=== PATIENT | male | born 1995 | race Caucasian/White ===

== ENCOUNTER → 2022-05-19 | Day surgery (SDC) | payer OTHER ==
[~2022-05-19] VITALS: Ht 172.7 cm; Wt 82.5 kg
[~2022-05-19] MED LIST: DIAZEPAM5 MG PO; ESCITALOPRAM OX10 MG PO
[2022-05-19 10:23] LABS: HCT 45.5 % (42.0-52.0); MCH 30.2 pg (25.0-31.0); MCHC 35.2 g/dL (32.0-36.0); MCV 85.8 fL (78.0-100.0); MPV 9.8 fL (6.0-9.5); RBC 5.3 M/uL (4.70-6.00)
[2022-05-19 11:15] LABS: ALBUMIN 4.5 g/dL (3.4-5.0); BILIRUBIN - TOTAL 0.5 mg/dL (0.2-1.0); BUN/CREAT RATIO (CALC) 17.1 RATIO; CREATININE 0.82 mg/dL (0.67-1.17); GLOBULIN (CALCULATION) 3.6 g/dL; POTASSIUM 4.1 mmol/L (3.5-5.1); TOTAL PROTEIN 8.1 g/dL (6.4-8.2)
== END | disposition home or self-care (01) ==
LOC: FAS 05-10 08:30
PROVIDERS: Surgery
DX: K29.50 Unspecified chronic gastritis without bleeding (principal); K20.90 Esophagitis, unspecified without bleeding; I10 Essential (primary) hypertension; J45.909 Unspecified asthma, uncomplicated; F17.210 Nicotine dependence, cigarettes, uncomplicated; Z88.1 Allergy status to other antibiotic agents; Z20.822 Contact with and (suspected) exposure to COVID-19
CPT/HCPCS: 36415; 80053; J2704; J7120; U0002